=== PATIENT | female | born 1975 | race Caucasian/White ===

== ENCOUNTER → 2019-05-17 | Outpatient (CLI) | payer OTHER ==
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
== END ==
LOC: MRI 09:12
PROVIDERS: ATTEND Anesthesiology Pain Medicine
DX: M54.12 Radiculopathy, cervical region (principal); M54.16 Radiculopathy, lumbar region; G89.21 Chronic pain due to trauma
CPT/HCPCS: 72141; 72148